=== PATIENT | female | born 1980 | race Hispanic/Latino ===

== ENCOUNTER → 2023-07-05 08:54 | Outpatient (CLI) | payer OTHER, MEDICAID, SELFPAY ==
--- NOTE | 2023-07-05 09:00 | DI.MG.S_ITS ---
BILATERAL DIGITAL SCREENING MAMMOGRAM 3D/2D WITH CAD: 07/05/2023 CLINICAL: Routine screening. Baseline exam. No prior exams were available for comparison. Both breasts are heterogeneously dense, which may obscure small masses (category c / 51-75% glandular tissue). Current study was also evaluated with a Computer Aided Detection (CAD) system. No significant masses, calcifications, or other findings are seen in either breast. IMPRESSION: NEGATIVE There is no mammographic evidence of malignancy. A 1 year screening mammogram is recommended. Based on the Tyrer Cuzick model (a risk assessment model) the patient's lifetime risk is 15.9% and her 10 year risk is 2.8%. According to the ACR, ACS, and NCCN guidelines, an annual breast MRI exam along with mammogram is recommended if the patient's lifetime risk is 20% or greater. This exam was interpreted at Station ID: [id number]. NOTE: For mammograms, a report in lay terms will be sent to the patient. Approximately 15% of breast malignancies will not be visualized mammographically. In the management of a palpable breast mass, a negative mammogram must not discourage biopsy of a clinically suspicious lesion. Electronically Signed By: Brody palmer/yaritza:07/07/2023 08:05:08 letter sent: Normal Exam ACR BI-RADS Category 1: Negative [id number]
== END ==
PROVIDERS: Family Provider Nurse Practitioner Acute Care; PCP Family Medicine; Referring Provider Family Medicine; Visit Provider Family Medicine
DX: Z12.31 Encounter for screening mammogram for malignant neoplasm of breast (principal); R92.333 Mammographic heterogeneous density, bilateral breasts
CPT/HCPCS: 77063; 77067

== ENCOUNTER 2024-07-06 19:39 | Emergency (ER) | payer OTHER, SELFPAY ==
[2024-07-06 19:52] VITALS: BP 134/94; PULSE 95; RESP 18; TEMP 37.4; O2SAT 97; BMI 29.2
--- NOTE | 2024-07-06 20:32 | EKG_ITS ---
[address] [address] Test Date: 2024-07-06 Pat Name: Nohemy Elliott Department: [facility] Room: Gender: Female Rn Relief Charge: RUTHIE : 1980 Requested By: Order Number: [id number] Reading MD: Etienne Stafford MD Measurements Intervals [place] Rate: 97 P: 5 MS: 174 QRS: 33 QRSD: 80 T: 50 QT: 334 QTc: 424 Interpretive Statements Normal sinus rhythm Nonspecific T wave abnormality Electronically Signed On 07-07-2024 6:43:27 PDT by Etienne Stafford MD
[2024-07-06 20:38] LABS: Add Manual Diff / Slide Review NO; Basophils Absolute Auto 100 /uL (0-100); Basophils Percent Auto 0.8 % (0-2); Eosinophils Absolute Auto 300 /uL (0-450); Eosinophils Percent Auto 3.4 % (2-4); Hematocrit 43.5 % (36-46); Hemoglobin 14.5 g/dL (12.0-16.0); Lymphocytes Absolute Auto 2800 /uL (1100-4500); Lymphocytes Percent Auto 27.9 % (25-40); Mean Corpuscular HGB Conc 33.4 % (30-36); Mean Corpuscular Volume 89.8 fL (80-100); Monocytes Absolute Auto 900 /uL (0-900); Monocytes Percent Auto 8.6 % (3-14); Neutrophils Absolute Auto 6000 /uL (1500-7000); Neutrophils Percent Auto 59.3 % (50-75); Platelet Count 318 X10^3/uL (150-400); Red Blood Cell Count 4.84 X10^6/uL (4.0-5.2); Red Cell Distribution Width 14.4 % (11.6-14.8); White Blood Cell Count 10.1 X10^3/uL (4.5-11.0)
--- NOTE | 2024-07-06 20:45 | ED_ITS ---
HPI - Psych <Gerardo Mora MD - Last Filed: 08/04/24 07:03> General Chief Complaint: Psychiatric Symptoms Stated Complaint: may have OD'd Time Seen by Provider: 07/06/24 20:16 Source: patient Mode of arrival: Ambulatory History of Present Illness HPI Narrative: Patient presents after an intentional overdose of diphenhydramine (15-20 tablets of 25 mg each) and an unspecified amount of Klonopin. The patient reports taking these medications to go to sleep and not wake up until the next day, indicating a possible suicide attempt. The patient has a history of mental health issues since the age of 11, with the last year being the first time without counseling or medication for depression. The patient?s counselor retired a year ago, which has been a trigger. The patient also reports recent verbal conflicts with her , who has been upset with her for communicating with her estranged sister. The patient denies any physical violence and states that she feels safe in her home. Medications: Diphenhydramine, Klonopin ( prescription). Allergies: None mentioned. Past Medical History: Long-standing history of mental health issues since age 11, currently not on any medications for depression. Surgical History: None mentioned. Related Data Home Medications Medication Instructions Recorded Confirmed No Known Home Medications 07/06/24 07/06/24 Allergies Allergy/AdvReac Type Severity Reaction Status Date / Time Sulfa (Sulfonamide Allergy Unknown Verified 06/12/23 08:30 Antibiotics) [SULFA (SULFONAMIDE ANTIBIOTICS)] Review of Systems <Gerardo Mora MD - Last Filed: 08/04/24 07:03> Review of Systems Narrative: Constitutional: Reports feeling out of it. Eyes: no visual changes. Ears/Nose/Throat: no nasal congestion or drainage. Respiratory: no shortness of breath. Cardiac: no chest pain. Gastrointestinal: no nausea or vomiting. Skin: no laceration, no rash. Musculoskeletal: no extremity pain. Neurologic: no confusion. Psychiatric: History of depression and suicidality, recent verbal conflicts with . Other: other Patient History <Gerardo Mora MD - Last Filed: 08/04/24 07:03> Medical History (Updated 07/22/24 @ 00:00 by ) Shoulder pain (~08/1992) PTSD (post-traumatic stress disorder) MDD (major depressive disorder) Bipolar 2 disorder Surgical History (Updated 03/25/23 @ 21:05 by Darcy Hilliard) Anesthesia Encounter for Essure implantation (~2003) H/O left wrist surgery (~06/1992) History of shoulder surgery Family History (Updated 03/25/23 @ 21:07 by Darcy Hilliard) Mother Cancer Father Parkinson's disease Dementia Grandmother Cancer Grandfather Dementia Grandmother Diabetes mellitus Social History marital status: number of children: 0 occupational status: unemployed 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 Skin: Good turgor, no rash, unusual bruising or prominent lesions. Head: Normocephalic, atraumatic. HEENT: Conjunctiva clear, EOM intact, PERRL, Mucous membranes moist. Neck: Supple, normal ROM. Heart: Regular rate and rhythm, no murmur or gallop or rubs. Lungs: Clear to auscultation. No rales, rhonchi, or wheezes. Abdomen: Soft and nontender. Bowel sounds normal. No mass or hernia. Back: Spine normal without deformity or tenderness, no CVA tenderness. Extremities: No deformities, edema. Peripheral pulses intact. Neurologic: No focal deficits noted. CN 2-12 normal. Normal sensation and motor exam. Psychiatric: Oriented X3. Normal mood and affect. Initial Vital Signs Initial Vital Signs: Vital Signs Temperature 99.4 F 07/06/24 19:52 Pulse Rate 95 H 07/06/24 19:52 Respiratory Rate 18 07/06/24 19:52 Blood Pressure 134/94 H 07/06/24 19:52 Pulse Oximetry 97 07/06/24 19:52 Oxygen Delivery Method Room Air 07/06/24 19:52 <Krystal Stone MD - Last Filed: 07/10/24 03:59> Initial Vital Signs Initial Vital Signs: Vital Signs Temperature 99.4 F 07/06/24 19:52 Pulse Rate 95 H 07/06/24 19:52 Respiratory Rate 18 07/06/24 19:52 Blood Pressure 134/94 H 07/06/24 19:52 Pulse Oximetry 97 07/06/24 19:52 Oxygen Delivery Method Room Air 07/06/24 19:52 Course <Gerardo Mora MD - Last Filed: 08/04/24 07:03> Orders Ordered: ED Orders 07/06/24 20:12 Consult to [facility] [place] - Complaint Investigator Stat 07/06/24 20:28 Acetaminophen Stat Complete Blood Count AUTO DIFF Stat Comprehensive Metabolic Panel Stat Salicylate Stat TSH [Thyroid Stimulating Hormone] Stat 07/06/24 20:32 EKG-12 Lead Stat 07/06/24 20:40 COVID19 -Nasal RAPID Stat 07/06/24 21:27 Ethanol (ETOH) Stat 07/06/24 22:32 urine tox [Urine Drug Screen, Rapid] Stat 07/07/24 00:06 EKG-12 Lead Stat Vital Signs Vital signs: Vital Signs - 8 hr 07/07/24 04:56 07/07/24 04:57 07/07/24 04:57 Temperature Pulse Rate 91 H 88 Respiratory Rate Blood Pressure 96/58 L Pulse Oximetry 98 97 Oxygen Delivery Method 07/07/24 04:58 Temperature 99.5 F Pulse Rate 82 Respiratory Rate 15 Blood Pressure 96/58 L Pulse Oximetry 98 Oxygen Delivery Method Room Air <Krystal Stone MD - Last Filed: 07/10/24 03:59> Orders Ordered: ED Orders 07/06/24 20:12 Consult to [facility] [place] - Complaint Investigator Stat 07/06/24 20:28 Acetaminophen Stat Complete Blood Count AUTO DIFF Stat Comprehensive Metabolic Panel Stat Salicylate Stat TSH [Thyroid Stimulating Hormone] Stat 07/06/24 20:32 EKG-12 Lead Stat 07/06/24 20:40 COVID19 -Nasal RAPID Stat 07/06/24 21:27 Ethanol (ETOH) Stat 07/06/24 22:32 urine tox [Urine Drug Screen, Rapid] Stat 07/07/24 00:06 EKG-12 Lead Stat Vital Signs Vital signs: Vital Signs - 8 hr 07/07/24 04:56 07/07/24 04:57 07/07/24 04:57 Temperature Pulse Rate 91 H 88 Respiratory Rate Blood Pressure 96/58 L Pulse Oximetry 98 97 Oxygen Delivery Method 07/07/24 04:58 Temperature 99.5 F Pulse Rate 82 Respiratory Rate 15 Blood Pressure 96/58 L Pulse Oximetry 98 Oxygen Delivery Method Room Air MDM - Psych <Gerardo Mora MD - Last Filed: 08/04/24 07:03> Lab Data Lab results narrative: Patient is lab work is largely reassuring there is no significant leukocytosis no anemia no electrolyte abnormalities requiring acute intervention -negative salicylates negative acetaminophen no evidence of coingestion -renal function with mildly elevated creatinine but not to the point that intervention is needed -negative ETOH negative UDS 07/06/24 20:28 07/06/24 20:28 Labs: Lab Results 07/06/24 07/06/24 07/06/24 Range/Units 20:28 20:40 21:27 WBC 10.1 (4.5-11.0) X10^3/uL RBC 4.84 (4.0-5.2) X10^6/uL Hgb 14.5 (12.0-16.0) g/dL Hct 43.5 (36-46) % MCV 89.8 (80-100) fL MCH 30.0 (26-34) PG MCHC 33.4 (30-36) % RDW 14.4 (11.6-14.8) % Plt Count 318 (150-400) X10^3/uL Neut % (Auto) 59.3 (50-75) % Lymph % (Auto) 27.9 (25-40) % [place] % (Auto) 8.6 (3-14) % Eos % (Auto) 3.4 (2-4) % Baso % (Auto) 0.8 (0-2) % Neut # (Auto) 6000 (3233-3447) /uL Lymph # (Auto) 2800 (9896-4244) /uL [place] # (Auto) 900 (0-900) /uL Eos # (Auto) 300 (0-450) /uL Baso # (Auto) 100 (0-100) /uL Sodium 142 (137-145) mmol/L Potassium 4.1 (3.4-5.1) mmol/L Chloride 107 (98-107) mmol/L Carbon Dioxide 22 (22-32) mmol/L BUN 20 H (7-17) mg/dL Creatinine 1.18 H (0.52-1.04) mg/dL Estimated GFR 58 L (>60) mL/min BUN/Creatinine Ratio 16.9 (6-22) Glucose 111 H (70-100) mg/dL Calcium 10.2 (8.4-10.2) mg/dL Total Bilirubin 0.4 (0.2-1.3) mg/dL AST 29 (14-36) IU/L ALT 27 (<35) IU/L Alkaline Phosphatase 66 (38-126) U/L Total Protein 8.6 H (6.3-8.2) g/dL Albumin 4.8 (3.5-5.0) g/dL Globulin 3.8 (1.7-4.1) g/dL Albumin/Globulin Ratio 1.3 (1.0-2.8) TSH 1.01 (0.47-4.68) uIU/mL Salicylates < 1.0 (<20) mg/dL U Opiates 300ng/mL cut (Negative) Ur Oxycodone Screen (Negative) Urine Methadone Screen (Negative) Acetaminophen < 10 (10-30) ug/mL Ur Barbiturates Screen (Negative) U Tricyclic Antidepress (Negative) Ur Phencyclidine Scrn (Negative) Ur Amphetamines Screen (Negative) U Methamphetamines Scrn (Negative) Ur MDMA Scrn (Ecstasy) (Negative) U Benzodiazepines Scrn (Negative) Urine Cocaine Screen (Negative) U Marijuana (THC) Screen (Negative) Urine pH (Normal) Urine Specific [place] (Normal) Ethyl Alcohol < 10 ( - 10) mg/dL Ur Creatinine (Normal) SARS-CoV-2 (PCR) Negative (Negative) 03/25/25 Range/Units 22:32 WBC (4.5-11.0) X10^3/uL RBC (4.0-5.2) X10^6/uL Hgb (12.0-16.0) g/dL Hct (36-46) % MCV (80-100) fL MCH (26-34) PG MCHC (30-36) % RDW (11.6-14.8) % Plt Count (150-400) X10^3/uL Neut % (Auto) (50-75) % Lymph % (Auto) (25-40) % [place] % (Auto) (3-14) % Eos % (Auto) (2-4) % Baso % (Auto) (0-2) % Neut # (Auto) (9124-7371) /uL Lymph # (Auto) (8267-9667) /uL [place] # (Auto) (0-900) /uL Eos # (Auto) (0-450) /uL Baso # (Auto) (0-100) /uL Sodium (137-145) mmol/L Potassium (3.4-5.1) mmol/L Chloride (98-107) mmol/L Carbon Dioxide (22-32) mmol/L BUN (7-17) mg/dL Creatinine (0.52-1.04) mg/dL Estimated GFR (>60) mL/min BUN/Creatinine Ratio (6-22) Glucose (70-100) mg/dL Calcium (8.4-10.2) mg/dL Total Bilirubin (0.2-1.3) mg/dL AST (14-36) IU/L ALT (<35) IU/L Alkaline Phosphatase (38-126) U/L Total Protein (6.3-8.2) g/dL Albumin (3.5-5.0) g/dL Globulin (1.7-4.1) g/dL Albumin/Globulin Ratio (1.0-2.8) TSH (0.47-4.68) uIU/mL Salicylates (<20) mg/dL U Opiates 300ng/mL cut Negative (Negative) Ur Oxycodone Screen Negative (Negative) Urine Methadone Screen Negative (Negative) Acetaminophen (10-30) ug/mL Ur Barbiturates Screen Negative (Negative) U Tricyclic Antidepress Negative (Negative) Ur Phencyclidine Scrn Negative (Negative) Ur Amphetamines Screen Negative (Negative) U Methamphetamines Scrn Negative (Negative) Ur MDMA Scrn (Ecstasy) Negative (Negative) U Benzodiazepines Scrn Negative (Negative) Urine Cocaine Screen Negative (Negative) U Marijuana (THC) Screen Negative (Negative) Urine pH Normal (Normal) Urine Specific [place] Normal (Normal) Ethyl Alcohol ( - 10) mg/dL Ur Creatinine Normal (Normal) SARS-CoV-2 (PCR) (Negative) ECG Data Attestation: I personally reviewed and interpreted this ECG as follows: Interpretation: Patient's EKG reviewed this shows normal sinus rhythm with a rate of 80, QRS within normal limits no significant prolonged SC interval, QTC 445, no signs of ischemia no ST elevation, depression or significant abnormalities requiring ED intervention. MDM Narrative Medical decision making narrative: INITIAL EVALUATION AND PLAN: - Call poison control for guidance on potential side effects and necessary interventions. - Obtain lab work to assess for any immediate health concerns from the overdose. - Observe the patient overnight for any adverse effects from the medications taken. - Arrange for the patient to speak with a social media job titles in the morning to discuss mental health support and resources. - Consider reinitiating mental health counseling and medication management for depression. Differential diagnosis includes but is not limited to: SI, HI, diphenhydramine overdose, Klonopin overdose, ingestion, domestic violence -poison control contacted which recommends up to 24 hours of observation, Q 6 hour EKG, look out for signs of urinary retention or benzo withdrawals -we contacted poison control after 6 hours post ingestion still no symptoms at this time EKG without significant changes. From their standpoint patient likely medically clear will be seen by social work in the a.m. -based on lab work physical exam at this time I believe patient is medically clear for discussion with psych/social work team <Krystal Stone MD - Last Filed: 07/10/24 03:59> Lab Data Labs: Lab Results 07/06/24 07/06/24 07/06/24 Range/Units 20:28 20:40 21:27 WBC 10.1 (4.5-11.0) X10^3/uL RBC 4.84 (4.0-5.2) X10^6/uL Hgb 14.5 (12.0-16.0) g/dL Hct 43.5 (36-46) % MCV 89.8 (80-100) fL MCH 30.0 (26-34) PG MCHC 33.4 (30-36) % RDW 14.4 (11.6-14.8) % Plt Count 318 (150-400) X10^3/uL Neut % (Auto) 59.3 (50-75) % Lymph % (Auto) 27.9 (25-40) % [place] % (Auto) 8.6 (3-14) % Eos % (Auto) 3.4 (2-4) % Baso % (Auto) 0.8 (0-2) % Neut # (Auto) 6000 (1263-1014) /uL Lymph # (Auto) 2800 (9871-9586) /uL [place] # (Auto) 900 (0-900) /uL Eos # (Auto) 300 (0-450) /uL Baso # (Auto) 100 (0-100) /uL Sodium 142 (137-145) mmol/L Potassium 4.1 (3.4-5.1) mmol/L Chloride 107 (98-107) mmol/L Carbon Dioxide 22 (22-32) mmol/L BUN 20 H (7-17) mg/dL Creatinine 1.18 H (0.52-1.04) mg/dL Estimated GFR 58 L (>60) mL/min BUN/Creatinine Ratio 16.9 (6-22) Glucose 111 H (70-100) mg/dL Calcium 10.2 (8.4-10.2) mg/dL Total Bilirubin 0.4 (0.2-1.3) mg/dL AST 29 (14-36) IU/L ALT 27 (<35) IU/L Alkaline Phosphatase 66 (38-126) U/L Total Protein 8.6 H (6.3-8.2) g/dL Albumin 4.8 (3.5-5.0) g/dL Globulin 3.8 (1.7-4.1) g/dL Albumin/Globulin Ratio 1.3 (1.0-2.8) TSH 1.01 (0.47-4.68) uIU/mL Salicylates < 1.0 (<20) mg/dL U Opiates 300ng/mL cut (Negative) Ur Oxycodone Screen (Negative) Urine Methadone Screen (Negative) Acetaminophen < 10 (10-30) ug/mL Ur Barbiturates Screen (Negative) U Tricyclic Antidepress (Negative) Ur Phencyclidine Scrn (Negative) Ur Amphetamines Screen (Negative) U Methamphetamines Scrn (Negative) Ur MDMA Scrn (Ecstasy) (Negative) U Benzodiazepines Scrn (Negative) Urine Cocaine Screen (Negative) U Marijuana (THC) Screen (Negative) Urine pH (Normal) Urine Specific [place] (Normal) Ethyl Alcohol < 10 ( - 10) mg/dL Ur Creatinine (Normal) SARS-CoV-2 (PCR) Negative (Negative) 07/06/24 Range/Units 22:32 WBC (4.5-11.0) X10^3/uL RBC (4.0-5.2) X10^6/uL Hgb (12.0-16.0) g/dL Hct (36-46) % MCV (80-100) fL MCH (26-34) PG MCHC (30-36) % RDW (11.6-14.8) % Plt Count (150-400) X10^3/uL Neut % (Auto) (50-75) % Lymph % (Auto) (25-40) % [place] % (Auto) (3-14) % Eos % (Auto) (2-4) % Baso % (Auto) (0-2) % Neut # (Auto) (3157-9938) /uL Lymph # (Auto) (1358-4413) /uL [place] # (Auto) (0-900) /uL Eos # (Auto) (0-450) /uL Baso # (Auto) (0-100) /uL Sodium (137-145) mmol/L Potassium (3.4-5.1) mmol/L Chloride (98-107) mmol/L Carbon Dioxide (22-32) mmol/L BUN (7-17) mg/dL Creatinine (0.52-1.04) mg/dL Estimated GFR (>60) mL/min BUN/Creatinine Ratio (6-22) Glucose (70-100) mg/dL Calcium (8.4-10.2) mg/dL Total Bilirubin (0.2-1.3) mg/dL AST (14-36) IU/L ALT (<35) IU/L Alkaline Phosphatase (38-126) U/L Total Protein (6.3-8.2) g/dL Albumin (3.5-5.0) g/dL Globulin (1.7-4.1) g/dL Albumin/Globulin Ratio (1.0-2.8) TSH (0.47-4.68) uIU/mL Salicylates (<20) mg/dL U Opiates 300ng/mL cut Negative (Negative) Ur Oxycodone Screen Negative (Negative) Urine Methadone Screen Negative (Negative) Acetaminophen (10-30) ug/mL Ur Barbiturates Screen Negative (Negative) U Tricyclic Antidepress Negative (Negative) Ur Phencyclidine Scrn Negative (Negative) Ur Amphetamines Screen Negative (Negative) U Methamphetamines Scrn Negative (Negative) Ur MDMA Scrn (Ecstasy) Negative (Negative) U Benzodiazepines Scrn Negative (Negative) Urine Cocaine Screen Negative (Negative) U Marijuana (THC) Screen Negative (Negative) Urine pH Normal (Normal) Urine Specific [place] Normal (Normal) Ethyl Alcohol ( - 10) mg/dL Ur Creatinine Normal (Normal) SARS-CoV-2 (PCR) (Negative) MDM Narrative Medical decision making narrative: INITIAL EVALUATION AND PLAN: - Call poison control for guidance on potential side effects and necessary interventions. - Obtain lab work to assess for any immediate health concerns from the overdose. - Observe the patient overnight for any adverse effects from the medications taken. - Arrange for the patient to speak with a social media job titles in the morning to discuss mental health support and resources. - Consider reinitiating mental health counseling and medication management for depression. Differential diagnosis includes but is not limited to: SI, HI, diphenhydramine overdose, Klonopin overdose, ingestion, domestic violence -poison control contacted which recommends up to 24 hours of observation, Q 6 hour EKG, look out for signs of urinary retention or benzo withdrawals -we contacted poison control after 6 hours post ingestion still no symptoms at this time EKG without significant changes. From their standpoint patient likely medically clear will be seen by social work in the a.m. -based on lab work physical exam at this time I believe patient is medically clear for discussion with psych/social work team AMBER bird: Will set patient up with mobile outreach crisis team, patient feels safe with discharge home contracts for safety. We will arrange for discharge Discharge Plan Departure Patient Disposition: Home Clinical Impression: Acute situational disturbance, Suicidal ideation Instructions: DI for Suicidal Ideation-Adult Activity Restrictions/Additional Instructions: Thank you for coming in today I am sorry that the last few days have been so frustrating. You have talked with our social media job titles and she is helping you get set up with outpatient psychiatric services. If you feel that you are getting worse or are considering killing yourself, please do return to the ER Prescriptions: No Action No Known Home Medications Referrals: Eliana Dobbs MD [Primary Care Provider] - Stand Alone Forms: Patient Portal/API/Survey
[2024-07-06 20:48] LABS: Alanine Aminotransferase 27 IU/L (<35); Albumin 4.8 g/dL (3.5-5.0); Albumin Globulin Ratio 1.3 (1.0-2.8); Alkaline Phosphatase 66 U/L (38-126); Aspartate Aminotransferase 29 IU/L (14-36); BUN Creatinine Ratio 16.9 (6-22); Bilirubin Total 0.4 mg/dL (0.2-1.3); Blood Urea Nitrogen 20 mg/dL (7-17); Calcium 10.2 mg/dL (8.4-10.2); Carbon Dioxide 22 mmol/L (22-32); Chloride 107 mmol/L (98-107); Estimated Glomerular Filt Rate 58 mL/min (>60); Globulin 3.8 g/dL (1.7-4.1); Glucose 111 mg/dL (70-100); HEMOLYSIS 19 (0-50); Potassium 4.1 mmol/L (3.4-5.1); Sodium 142 mmol/L (137-145); Total Protein 8.6 g/dL (6.3-8.2)
[2024-07-06 21:04] LABS: COVID19 -Nasal RAPID Negative (Negative)
--- NOTE | 2024-07-06 21:05 | PC.NURSE ---
Poison control contated, I spoke with Ciera, pharmacist. Pt reports ingestion of [facility] PM 1 whole bottle of 100 tabs taken over the last 3 days for sleep/insomnia. Pt states she's been taking them by the handful, last dose 1700 today. Pharm states that there may be acetaminophen in this formula, if acetaminophen level is detectable she suggests N-acetylcystine treatment and serial liver enzymes. States that symptoms of diphehydramine OD include sleepiness, agitation, tachycardia, urinary retention. Treatment is benzos. States symptoms may occur as Klonipin wears off-- give additional benzos as needed. Suggests EKG Q4-[address] Mora notified of above.
[2024-07-06 21:09] LABS: Acetaminophen < 10 ug/mL (10-30); Salicylate < 1.0 mg/dL (<20)
[2024-07-06 21:42] LABS: Thyroid Stimulating Hormone 1.01 uIU/mL (0.47-4.68)
[2024-07-06 21:50] LABS: Ethanol (ETOH) < 10 mg/dL
--- NOTE | 2024-07-06 22:39 | PC.NURSE ---
This WAREHOUSE LOADER started sitting for patient around 2144. Pt was lying in bed and resting. At around 2219, the patient woke up and requested to go to the bathroom. This WAREHOUSE LOADER obtained a urine sample and sent it down to lab. This WAREHOUSE LOADER continues to sit at bed side.
[2024-07-06 22:45] LABS: UR Morphine/Opiate cutoff 300 Negative (Negative); Ur Creatinine Normal (Normal); Ur Specific Gravity Normal (Normal); Urine Amphetamines Negative (Negative); Urine Barbiturates Negative (Negative); Urine Benzodiazepines Negative (Negative); Urine Cocaine Negative (Negative); Urine MDMA Negative (Negative); Urine Methadone Negative (Negative); Urine Methamphetamines Negative (Negative); Urine Oxycodone Negative (Negative); Urine Phencyclidine Negative (Negative); Urine Tetrahydrocannabinol Negative (Negative); Urine Tricyclic Antidepressant Negative (Negative); Urine pH Normal (Normal)
[2024-07-06 23:51] VITALS: BP 108/69; PULSE 98; RESP 16; O2SAT 97
--- NOTE | 2024-07-06 23:56 | PC.NURSE ---
Snack offered to patient. Received water and yogurt. This ADJUSTER PIANO ACTION continues to monitor at bedside.
[2024-07-06 23:59] VITALS: TEMP 36.8
--- NOTE | 2024-07-07 | PC.NURSE ---
Reviewed lab results and pt condition with Poison control pharmacist Ciera. She states that if pt remains stable and asymptomatic, with no EKG changes, ok to clear 6-8 hours after last ingestion (1700), so 2300. Will repeat EKG now. Dr Mora updated.
--- NOTE | 2024-07-07 00:10 | EKG_ITS ---
[address] [address] Test Date: 2024-07-07 Pat Name: Nohemy Elliott Department: [facility] Room: Gender: Female Senior Infrastructure Architect: ROSSY : 1980 Requested By: Order Number: [id number] Reading MD: Etienne Stafford MD Measurements Intervals [place] Rate: 80 P: 6 AL: 160 QRS: 28 QRSD: 80 T: 21 QT: 386 QTc: 445 Interpretive Statements Normal sinus rhythm Electronically Signed On 07-07-2024 6:43:37 PDT by Etienne Stafford MD
--- NOTE | 2024-07-07 00:32 | PC.NURSE ---
This STONEWORKING BELT SANDER and Lucretia STONEWORKING BELT SANDER gathered the pt belongings and pt stated that i have a lot of harrison on me since I was trying to escape. This STONEWORKING BELT SANDER and Lucretia counted the harrison in front of the pt totaling $1,420.00 and placed it in a secure envelope and placed in safe upstairs at main nurses station. other pt belongings were then collected and taken out of the room and placed in locker 6. Finn attached to pt chart. CALVIN garg
--- NOTE | 2024-07-07 00:32 | PC.NURSE ---
This OPTICIAN APPRENTICE DISPENSING and Edilia (OPTICIAN APPRENTICE DISPENSING) went into patient room to verify expensive belongings and harrison brought in during visit. It was explained that we will be counting the money together to verify the amount of harrison to have it stored away in a safe. Patient agreed. This OPTICIAN APPRENTICE DISPENSING and Edilia (OPTICIAN APPRENTICE DISPENSING) counted the money with the patient and documented the amount on the appropriate form. This OPTICIAN APPRENTICE DISPENSING continues to monitor at bedside.
[2024-07-07 04:56] VITALS: PULSE 91; O2SAT 98
[2024-07-07 04:57] VITALS: BP 96/58; PULSE 88; O2SAT 97
[2024-07-07 04:58] VITALS: BP 96/58; PULSE 82; RESP 15; TEMP 37.5; O2SAT 98
[2024-07-07 12:13] VITALS: BP 106/71; PULSE 90; RESP 20; TEMP 37.2; O2SAT 96
--- NOTE | 2024-07-07 12:43 | PC.NURSE ---
at bedside, patient calm but tearful when talking with .
--- NOTE | 2024-07-07 13:53 | CM.SWNOTE ---
ED HOSPITAL INSURANCE CLERK Assessment Note: HOSPITAL INSURANCE CLERK - Biogeographer Assessment HOSPITAL INSURANCE CLERK/Biogeographer Assessment Time Spent with Patient Start date 07/07/24 Visit Start Time 11:45 End date 07/07/24 Visit End Time 12:30 Total time Care Management spent on 45 minutes patient visit-in minutes Mental Health Screening Include Onset, Duration, Intensity Presenting Problem Patient presented to the ED after an overdose on Benadryl and Klonopin. Patient states she had no intentions of ending her life last night, I just wanted to go to sleep and wake up like nothing happened. Patient states in the last 4 days, her estranged sister has called her and she hid this fact from her . Her found out and it resulted in a heated argument, no physical abuse reported. Precipitating Event(s) Patient has been dealing with complicated grief symptoms since the of her mother in 2017. Patient's biological father in February 2024 and she also stopped seeing a counselor at the same time. The month of June is the anniversary of her mother's and her and her typically go on a trip to leave the house in which her mother in but they did not this year; both patient and believe this could attribute to the pt's MH symptoms. Patient Strengths Patient is supported by her , Tyler, who was waiting in the lobby the entire duration of her stay. Patient is self-aware, communicative and exhibits good self-care. Current Behavioral Health Provider(s) None currently. Include Facility, Provider, Ph. # Psych. Hx Mental Health and Chemical Hx of Bipolar 2 Disorder, in Dependency remission and not currently taking medications or seeing a therapist for this. Family Hx of Behavioral Abuse None reported. Psychiatric Hospitalizations (date(s)/ 11yo after a suicide attempt location) - went to a 9 month teen camp in [place]. Psychosocial information & Support Patient is a 43yo female who Systems resides in [place] with her , Tyler. School/Work Patient is not currently working, she volunteers at the local [employer]. Legal Concerns Legal Matters - Outstanding Issues None reported. Mental Status Orientation (Person/Place/Time) AOx3 Stated Mood Tired, embarrassed Affect (Congruent with Mood?) Full range, congruent with mood Thought Content - Specify/Describe None reported, none identified Obsessions, Delusions, Hallucinations during assessment. Thought Processes (Tslxctm-Jluqidoe-Lwwy Logical, goal directed Nfwfavnt-Hphvdxvb-Pedgaslial- Qgsbrncsfnyjon-Vvqrzqh-Ioqhgbkaldjt- Thought Blocking) Speech (Dnrlsn-Jnvu-Sihytav-Rapid-Soft- Normal, soft Loud-Pressured) Motor (Yhxowk-Exsozyaqu-Nbar-Other) Normal Insight (Jzfy-Vvtp-Zopa/Limited) Good Judgement (Apau-Gaaf-Yovj/Limited) Good Impulse Control (Adequate-Impaired) Impaired Memory (Sfvbfkwvx-Evizcy-Iqabav, Intact Impaired-Intact) Concentration (Intact-Impaired) Intact Attention (Intact-Impaired) Intact Behavior (Appropriate-Inappropriate) Appropriate Additional Comment Patient is calm, cooperative and communicative during assessment. Risk Assessment Suicidal Ideation (Plan) No Homicidal Ideation (Plan) No Comment Patient denies HI. Patient states she did not have intentions of ending her life last night, she states she wanted to go to sleep and wake up like nothing happened like in the [place] . Patient states she has a hx of an attempt via cutting wrists when she was 11yo, she attended a teen camp in [place] for 9m after this attempt. Patient denies any suicidal ideation now. Intervention Intervention Reviewed chart and discussed with ED Provider pt's medical status and discharge needs. ED HOSPITAL INSURANCE CLERK meets with patient. Patient endorses the events of last night are a misunderstanding and she feels safe in her home with her . Patient states she has a hx of suicide attempts and SI but last night was not an intended overdose. ED HOSPITAL INSURANCE CLERK and patient discuss goals of care. Patient explains they are agreeable to receive intensive outpatient services and agreed to a referral to be sent to the Mobile Crisis Outreach Team. At this time, it is the opinion of this HOSPITAL INSURANCE CLERK that patient would benefit from intensive oupatient psychiatric treatment for bipolar 2 disorder. HOSPITAL INSURANCE CLERK informs ED provider, Dr. Stone, who indicates agreement. HOSPITAL INSURANCE CLERK informs CALVIN Hester and Berenice. Plan RA Plan Once patient is medically clear, HOSPITAL INSURANCE CLERK [facility] (spoke with Zohreh) for follow up services. HOSPITAL INSURANCE CLERK provided crisis contacts and [facility] contact information to patient and , who verbalized understanding of plans. Patient will work with [facility] team to establish MH services again. Karina Lemus [employer]
== END 2024-07-07 13:00 | disposition home or self-care (01) ==
PROVIDERS: Emergency Medicine; Emergency Provider Emergency Medicine; Family Provider Nurse Practitioner Acute Care; PCP Family Medicine
DX: R45.851 Suicidal ideations (principal); F43.0 Acute stress reaction
CPT/HCPCS: 36415; 80053; 80305; 80320; 80329; 84443; 85025; 87635; 93005; 99284; G0480